=== PATIENT | female | born 1995 | race Caucasian/White ===

== ENCOUNTER 2022-09-03 06:07 | Inpatient (IN) | payer OTHER ==
[2022-09-03] MEDS ORDERED: TERBUTALINE 1 MG/ML VIAL SQ PRN (06:36)
[2022-09-03] MEDS ORDERED: LIDOCAINE 0.5% (PF) 5 MG/ML (50 ML SDV) SQ PRN (06:36)
[2022-09-03] MEDS ORDERED: OXYTOCIN 30 UNITS/500 ML NS 30 UNIT in SALINE 1 500ML.BAG IV SCH (06:45)
[2022-09-03 07:07] LABS: Basophils % (A) 0 %; Eosinophils % (A) 0 %; HCT 33.3 % (34.0-46.0); HGB 11.5 gm/dL (11.4-16.0); Lymphocytes # (A) 1.7 k/uL (1.0-4.8); Lymphocytes % (A) 22 %; MCH 30.8 pg (25.0-35.0); MCHC 34.5 g/dL (31.0-37.0); MCV 89.1 fL (80.0-100.0); Mean Platelet Volume 8.3; Monocytes # (A) 0.3 k/uL (0-1.0); Monocytes % (A) 4 %; Neutrophils # (A) 5.7 k/uL (1.3-7.7); Neutrophils % (A) 72 %; Platelet Count 204 k/uL (150-450); RBC 3.73 m/uL (3.80-5.40); RDW 13.9 % (11.5-15.5); WBC 7.8 k/uL (3.8-10.6)
--- NOTE | 2022-09-03 07:08 | P.HPOB ---
History of Present Illness H&P Date: 09/03/22 Chief Complaint: Here for induction of labor, contractions every 7 minutes. Previous C-sect This is a 27-year-old female 2 para 1001 EDC 09/03/2022 at 40 weeks gestation. Patient has a previous history of low transverse and is hoping for . Cervix is favorable, she presents today for induction, but has had uterine contractions every 7 minutes apart through the night. Fetus is been active throughout the . She denies fluid leakage or vaginal bleeding. Past surgical history section 2019 for failure to descend in the second stage. Dental surgery age 21. Past medical history is significant for seizure disorder, no seizure in years, and on no medications. Hypothyroidism, history of ovarian cysts. Current medications vitamins daily, Levothyroxine 50 MCG's daily ALLERGIES sulfa, reaction unknown. Family history significant for diabetes, mesothelioma, seizure disorder, thyroid issues. Social history patient is , she denies alcohol or drug use, former marijuana smoker. Obstetric history blood type is A+, rubella status immune. VDRL testing, hepatitis B surface antigen, group B strep cultures, gonorrhea and chlamydia cultures, urine culture all negative. One-hour Glucola 101. On exam patient is 5 foot 3 inches, 171 pounds, vital signs are stable and she is afebrile. The general physical exam is within normal limits. Extremities reveal no edema. Cervix is 3-4 cm dilated, 60-70% effaced, -2 station, vertex presentation, soft, anterior. Artificial amniorrhexis reveals clear fluid. heart rate is consistent with reactive NST. Impression: 40 week intrauterine , favorable cervix, early labor, previous planning . Plan: Analgesic options reviewed. Oxytocin per hospital protocol. Close maternal and surveillance. Anticipate normal spontaneous vaginal delivery. Review of Systems Constitutional: Reports as per HPI Past Medical History Past Medical History: Seizure Disorder, Thyroid Disorder Medications and Allergies Home Medications Medication Instructions Recorded Confirmed Type Aspirin 81 mg PO DAILY 09/03/22 09/03/22 History Levothyroxine Sodium [Synthroid] 50 mcg PO DAILY 09/03/22 09/03/22 History Vit No.179/Iron/Folic 1 each PO DAILY 09/03/22 09/03/22 History [ Tablet] Allergies Allergy/AdvReac Type Severity Reaction Status Date / Time Sulfa (Sulfonamide Allergy Rash/Hives Verified 09/03/22 06:33 Antibiotics) Exam Intake and Output 09/02/22 09/03/22 09/03/22 22:59 06:59 14:59 Other: Weight 77.836 kg See dictation under HPI please Assessment and Plan Assessment: 40 week intrauterine , here for induction of labor, in early spontaneous labor. History of previous , planning . Plan: Analgesic options reviewed. Oxytocin per hospital protocol. Continue close maternal and surveillance. Anticipate vaginal after . Time with Patient: Less than 30
[2022-09-03] MEDS: LACTATED RINGERS 1,000 ML IV SCH ×2 (07:10→14:45)
[2022-09-03] MEDS ORDERED: diphenhydrAMINE 50 MG/ML 1 ML VIAL IVP PRN ×2 (11:17)
[2022-09-03] MEDS ORDERED: diphenhydrAMINE 25 MG CAP PO PRN (11:17)
[2022-09-03] MEDS ORDERED: SIMETHICONE 80 MG CHEWABLE PO PRN (11:17)
[2022-09-03] MEDS ORDERED: LANOLIN CREAM 5 GM TUBE TOPICAL PRN (11:17)
[2022-09-03] MEDS ORDERED: diphenhydrAMINE ELIXIR 25 MG/10 ML CUP PO PRN (11:17)
[2022-09-03] MEDS ORDERED: IBUPROFEN ORAL SUSP 100 MG/5 ML CUP PO PRN (11:17)
[2022-09-03] MEDS ORDERED: diphenhydrAMINE 50 MG CAP PO PRN (11:17)
[2022-09-03] MEDS ORDERED: HYDROCORTISONE 2.5% RECTAL CREAM 30 GM TUBE RECTAL PRN (11:17)
[2022-09-03] MEDS ORDERED: BENZOCAINE/MENTHOL SPRAY 1 GM/SPRAY AEROSOL TOPICAL PRN (11:17)
[2022-09-03] MEDS ORDERED: ZOLPIDEM 5 MG TAB PO PRN (11:17)
--- NOTE | 2022-09-03 11:17 | P.PROBDLV ---
Vaginal Delivery Note - . Vaginal Delivery Note: This is a 27-year-old female 2 para 1001 EDC 09/03/2022 at 40 weeks gestation who presented with a favorable cervix for attempted . is remarkable for rubella status immune, blood type A+, group B strep cultures negative. Please see my dictated history and physical for details. Artificial amniorrhexis revealed clear fluid. Patient was offered but declined any pain medication. She progressed well through the first stage of labor, heart tones were reassuring throughout. She became completely dilated at 1050 hrs. Perineal body was prepped and draped in usual sterile fashion. With excellent maternal expulsive efforts the head crowned in the occiput anterior position. There was a nuchal cord 1 that was reduced. The right or anterior shoulder was delivered from underneath the pubic symphysis at which time the oropharynx, nasopharynx, and external nares were bulb suctioned on the perineal body. Patient was officially delivered of a liveborn male at 1101 hrs. Umbilical cord was doubly clamped and ligated, he was handed to waiting nurses for evaluation where scores of 9 and 9 at one and 5 minutes respectively were given. The placenta delivered spontaneously, it was inspected and noted to be intact with trivascular cord. Uterus is massaged. Careful inspection of the cervix, vagina, perineum, periurethral, and perirectal areas revealed no significant lacerations or defects. No suturing was deemed necessary. Total estimated blood loss 200 mL's. All sponge needle and enhancement counts are correct. Patient is declining circumcision for her son at this time, hoping to do it at the 8th day of life.Patient is allowed to begin the bonding experience in the LDR.
[2022-09-03] MEDS: IBUPROFEN 600 MG TAB PO SCH ×2 (12:50→21:19)
[2022-09-03] MEDS: SENNOSIDES-DOCUSATE SODIUM 1 EACH TAB PO SCH ×2 (20:37→21:21)
[2022-09-04] MEDS: LEVOTHYROXINE 50 MCG TAB PO SCH (06:31)
[2022-09-04] MEDS: IBUPROFEN 600 MG TAB PO SCH ×5 (06:33→18:39)
[2022-09-04] MEDS: SENNOSIDES-DOCUSATE SODIUM 1 EACH TAB PO SCH ×2 (08:18→20:55)
--- NOTE | 2022-09-04 11:59 | P.PN ---
Subjective Progress Note Date: 09/04/22 Principal diagnosis: Doing well first day Slept well. Minimal pain. Minimal lochia rubra. Breast-feeding. in the nursery with elevated bilirubin. Objective - Vital Signs Vital signs: Vital Signs Temp 98.1 F 09/04/22 08:00 Pulse 83 09/04/22 08:00 Resp 16 09/04/22 08:00 BP 103/66 09/04/22 08:00 Pulse Ox 97 09/04/22 08:00 FiO2 Intake & Output 09/03/22 09/04/22 09/04/22 18:59 06:59 18:59 Intake Total 174.667 Output Total 720 Balance -545.333 Weight 77.836 kg Intake: Intake, IV Titration 174.667 Amount Oxytocin 30 Units/500 ml 174.667 Ns 30 unit In Saline 1 500ml.bag @ Per Protocol IV .Q0M TADEO Rx#:[id number] Output: Estimated Blood Loss 400 Output, Quantitative 320 Blood Loss Other: # Voids 1 1 1 - Constitutional General appearance: Present: average body habitus, cooperative - EENT Eyes: Present: PERRLA ENT: Present: hearing grossly normal - Neck Neck: Present: normal ROM - Respiratory Respiratory: bilateral: CTA - Cardiovascular Rhythm: regular - Gastrointestinal General gastrointestinal: Present: normal bowel sounds - Genitourinary Genitourinary Comment(s): Uterus firm, midline, symmetric, nontender, 18 week size. Minimal lochia rubra. - Neurologic Neurologic: Present: CNII-XII intact - Musculoskeletal Musculoskeletal: Present: strength equal bilaterally - Psychiatric Psychiatric: Present: A&O x's 3, appropriate affect, intact judgment & insight - Labs CBC & Chem 7: 09/03/22 06:25 Assessment and Plan Assessment: Doing well first day. Plan: Likely discharge home tomorrow upon discharge. Requesting circumcision in the office on 09/11/2022, we will attempt to schedule. Jdrf-kff-blrxqsv medication as needed for pain. No intercourse tampons or douching. Bogz-xct-infyrnu Advil or Motrin or Aleve as needed for pain. Time with Patient: Less than 30
[2022-09-05] MEDS: IBUPROFEN 600 MG TAB PO SCH (00:20)
[2022-09-05 00:37] VITALS: RESP 16
[2022-09-05] MEDS: LEVOTHYROXINE 50 MCG TAB PO SCH (05:46)
[2022-09-05] MEDS: SENNOSIDES-DOCUSATE SODIUM 1 EACH TAB PO SCH (08:13)
--- NOTE | 2022-09-05 08:53 | P.DS ---
Providers Date of admission: 09/03/22 06:07 Expected date of discharge: 09/05/22 Attending physician: Tiera Carrasco Primary care physician: Stated None - Discharge Diagnosis(es) (1) Normal spontaneous vaginal delivery Current Visit: Yes Status: Acute (2) Vaginal after () Current Visit: Yes Status: Acute Hospital Course: the patient is a 27-year-old 2 para 1001 admitted at 40 weeks of gestation by good dating parameters. She is admitted for trial of labor having had a previous low transverse section. She has a favorable cervix. On labor and delivery, all signs reassuring with category 1 heart rate tracing. She had Pitocin augmentation started and underwent artificial rupture of membranes for clear fluid.she progressed the through the latent and active phase of labor without difficulty and fairly quickly. She then pushed to a normal spontaneous vaginal delivery of a viable 7 lbs. 15 oz. baby boy with Apgars of 9 at 1 minute and 9 at 5 minutes. Her course was unremarkable with vital signs remaining stable and her temperature was afebrile throughout. She was deemed stable for discharge on day #2 was discharged home to follow-up in the office in 6 weeks' time routinely. Discharge instructions included calling for any significantly increased bleeding or foul-smelling lochia, significantly increased fever abdominal pain, perineal complaints, breast complaints, or anything also concerned her. She was a dditionally instructed to have nothing in the vagina for at least 6 weeks time to include intercourse. She understood her instructions and agrees follow up as noted above. Discharge medications included continued vitamins as she has opted to breast-feed as well as qewi-qyc-agqnksk analgesic pain medications. Maternal blood type is A+ and rubella status is immune. Patient Condition at Discharge: Stable Plan - Discharge Summary New Discharge Prescriptions: No Action Levothyroxine Sodium [Synthroid] 50 mcg PO DAILY Vit No.179/Iron/Folic [ Tablet] 1 each PO DAILY Aspirin 81 mg PO DAILY Discharge Medication List Aspirin 81 mg PO DAILY 09/03/22 [History] Levothyroxine Sodium [Synthroid] 50 mcg PO DAILY 09/03/22 [History] Vit No.179/Iron/Folic [ Tablet] 1 each PO DAILY 09/03/22 [History] Follow up Appointment(s)/Referral(s): Tiera Carrasco MD [STAFF PHYSICIAN] - 6 Weeks Discharge Disposition: HOME SELF-CARE
[2022-09-05 12:22] VITALS: BP 99/65; PULSE 87; TEMP 98.4
== END 2022-09-05 16:14 | disposition home or self-care (01) | DRG 807 ==
LOC: 4FBP 06:07
PROVIDERS: ADMIT Obstetrics & Gynecology; ATTEND Obstetrics & Gynecology
PROC: 10E0XZZ Delivery of Products of Conception, External Approach (ICD-10-PCS; principal; 2022-09-03)
DX: O34.211 Maternal care for low transverse scar from previous cesarean delivery (principal); Z37.0 Single live birth; E03.9 Hypothyroidism, unspecified; O99.284 Endocrine, nutritional and metabolic diseases complicating childbirth; N85.8 Other specified noninflammatory disorders of uterus; O69.81X0 Labor and delivery complicated by cord around neck, without compression, not applicable or unspecified; Z3A.40 40 weeks gestation of pregnancy; Z28.310 Unvaccinated for COVID-19; Z79.890 Hormone replacement therapy; Z79.82 Long term (current) use of aspirin; Z79.899 Other long term (current) drug therapy; Z88.2 Allergy status to sulfonamides
CPT/HCPCS: 85025; 86803; 86850; 86900; 86901

== ENCOUNTER → 2024-06-17 | Outpatient (CLI) | payer OTHER ==
[2024-06-17 18:17] LABS: T4, Free (Free Thyroxine) 1.01 ng/dL (0.80-1.80)
== END | disposition home or self-care (01) ==
LOC: LABWHC1 10:36
PROVIDERS: ATTEND Internal Medicine Endocrinology, Diabetes & Metabolism
DX: E03.8 Other specified hypothyroidism (principal)
CPT/HCPCS: 36415; 84439; 84443

== ENCOUNTER → 2024-07-27 | Outpatient (CLI) | payer OTHER | END | disposition home or self-care (01) | LOC: LABWHC1 11:47 | PROVIDERS: ATTEND Internal Medicine Endocrinology, Diabetes & Metabolism | DX: E03.8 Other specified hypothyroidism (principal) | CPT/HCPCS: 36415; 84443 ==

== ENCOUNTER 2024-11-08 06:06 | Inpatient (IN) | payer OTHER ==
[2024-11-08] MEDS ORDERED: TERBUTALINE 1 MG/ML VIAL SQ PRN (06:49)
[2024-11-08] MEDS ORDERED: METHYLERGONOVINE 0.2 MG/ML 1 ML AMP IM PRN (06:49)
[2024-11-08] MEDS ORDERED: CARBOPROST TROMETHAMINE 250 MCG/ML 1 ML AMP IM PRN (06:49)
[2024-11-08] MEDS ORDERED: TRANEXAMIC 1,000 MG/100ML-NACL 1,000 MG in EMPTY BAG 1 BAG IV PRN (06:49)
[2024-11-08] MEDS ORDERED: miSOPROStoL 200 MCG TAB RECTAL PRN (06:49)
[2024-11-08] MEDS ORDERED: LIDOCAINE 0.5% (PF) 5 MG/ML (50 ML SDV) SQ PRN (06:49)
[2024-11-08] MEDS ORDERED: OXYTOCIN 10 UNIT/ML 1 ML VIAL IM PRN (06:49)
[2024-11-08] MEDS ORDERED: miSOPROStoL 200 MCG TAB PO PRN (06:49)
[2024-11-08 07:21] LABS: Basophils % (A) 0 %; Eosinophils # (A) 0.1 k/uL (0-0.7); Eosinophils % (A) 1 %; HCT 34.9 % (34.0-46.0); HGB 11.6 gm/dL (11.4-16.0); Lymphocytes # (A) 1.9 k/uL (1.0-4.8); Lymphocytes % (A) 29 %; MCH 29.9 pg (25.0-35.0); MCHC 33.2 g/dL (31.0-37.0); MCV 90.1 fL (80.0-100.0); Mean Platelet Volume 8.4; Monocytes # (A) 0.2 k/uL (0-1.0); Monocytes % (A) 4 %; Neutrophils # (A) 4.2 k/uL (1.3-7.7); Neutrophils % (A) 64 %; Platelet Count 178 k/uL (150-450); RBC 3.87 m/uL (3.80-5.40); RDW 14.3 % (11.5-15.5); WBC 6.5 k/uL (3.8-10.6)
[2024-11-08] MEDS: LACTATED RINGERS 1,000 ML IV SCH (07:27)
[2024-11-08] MEDS: OXYTOCIN 30 UNITS/500 ML NS 30 UNIT in SALINE 1 500ML.BAG IV SCH (07:27)
[2024-11-08] MEDS ORDERED: NALBUPHINE 10 MG/ML (10 ML MDV) IV PRN (08:35)
--- NOTE | 2024-11-08 08:35 | P.HPOB ---
History of Present Illness H&P Date: 11/08/24 Chief Complaint: IUP at 39-2/7 weeks This is a 29-year-old 3 para 2-0-0-2 at 39-2/7 weeks that presents to labor and delivery for scheduled induction of labor. Patient has a prior history of a section with her first delivery, failed home delivery. Patient had a successful with her second delivery. Patient has been receiving routine care which has been essentially uncomplicated. Patient notes good movement today she notes occasional contractions denies loss of fluid or vaginal bleeding. On blood work this patient has a blood type of a positive, rubella status immune, hepatitis B surface antigen negative, RPR is nonreactive, group beta strep culture is negative. Review of Systems Constitutional: Denies chills, Denies fatigue, Denies fever Ears, nose, mouth and throat: Denies headache Cardiovascular: Reports leg edema Respiratory: Denies dyspnea Gastrointestinal: Denies nausea, Denies vomiting Genitourinary: Reports Past Medical History Past Medical History: Seizure Disorder, Thyroid Disorder Additional Past Medical History / Comment(s): Had seizure in 09/2020, hashimotos History of Any Multi-Drug Resistant Organisms: None Reported Past Surgical History: Section Additional Past Surgical History / Comment(s): Jasper teeth removal Past Anesthesia/Blood Transfusion Reactions: No Reported Reaction Past Psychological History: No Psychological Hx Reported Smoking Status: Never smoker Past Alcohol Use History: None Reported Past Drug Use History: None Reported - Past Family History Mother Family Medical History: No Reported History Medications and Allergies Home Medications Medication Instructions Recorded Confirmed Type Aspirin 81 mg PO DAILY 09/03/22 11/08/24 History Levothyroxine Sodium [Synthroid] 125 mcg PO DAILY 09/03/22 11/08/24 History Vit No.179/Iron/Folic 1 each PO DAILY 09/03/22 11/08/24 History [ Tablet] Allergies Allergy/AdvReac Type Severity Reaction Status Date / Time Sulfa (Sulfonamide Allergy Rash/Hives Verified 11/08/24 06:35 Antibiotics) Exam Osteopathic Statement: *. No significant issues noted on an osteopathic st ructural exam other than those noted in the History and Physical/Consult. Vital Signs Temp Pulse Resp BP 11/08/24 06:33 97.3 F L 107 H 15 118/77 Intake and Output 11/07/24 11/08/24 11/08/24 22:59 06:59 14:59 Other: Weight 88.451 kg Targeted physical exam is performed this date in general is a well-nourished well-developed female in no acute distress, breathing is nonlabored, heart has a regular rate and rhythm, abdomen is gravid, on cervical exam she is 4/50/-3 station, amniotomy is performed and copious clear fluid is obtained. Vertex presentation is appreciated on exam and confirmed with ultrasound. heart tones are noted to be category 1 and she is ingris irregularly. Results Result Diagrams: 11/08/24 06:55 Assessment and Plan (1) Term Current Visit: Yes Status: Acute Code(s): Z34.90 - ENCNTR FOR SUPRVSN OF NORMAL , UNSP, UNSP TRIMESTER SNOMED Code(s): 30049160 (2) History of section Current Visit: Yes Status: Acute Code(s): Z98.891 - HISTORY OF UTERINE SCAR FROM PREVIOUS SURGERY SNOMED Code(s): 867994230 (3) Desires (vaginal after ) trial Current Visit: Yes Status: Acute Code(s): O34.219 - MATERNAL CARE FOR UNSP TYPE SCAR FROM PREVIOUS DEL SNOMED Code(s): 205939638 (4) History of Current Visit: Yes Status: Acute Code(s): Z98.891 - HISTORY OF UTERINE SCAR FROM PREVIOUS SURGERY SNOMED Code(s): 707771726 Plan: 29-year-old G3, P2 at 39-2/7 weeks that presents to labor and delivery for scheduled induction of labor. Patient is admitted and Pitocin induction of labor has begun. Patient underwent amniotomy clear fluid was obtained. Options for analgesia are discussed and patient states understanding. Anticipate spontaneous vaginal delivery.
[2024-11-08] MEDS: LEVOTHYROXINE 125 MCG TAB PO SCH (12:55)
[2024-11-08] MEDS: PRENATAL VIT-IRON-FOLIC ACID 1 EACH TABLET PO SCH (12:55)
[2024-11-08] MEDS ORDERED: diphenhydrAMINE 50 MG/ML 1 ML VIAL IVP PRN ×2 (13:51)
[2024-11-08] MEDS ORDERED: BENZOCAINE/MENTHOL SPRAY 1 GM/SPRAY AEROSOL TOPICAL PRN (13:51)
[2024-11-08] MEDS ORDERED: SIMETHICONE 80 MG CHEWABLE PO PRN (13:51)
[2024-11-08] MEDS ORDERED: HYDROCORTISONE 2.5% RECTAL CREAM 30 GM TUBE RECTAL PRN (13:51)
[2024-11-08] MEDS ORDERED: diphenhydrAMINE 50 MG CAP PO PRN (13:51)
[2024-11-08] MEDS ORDERED: diphenhydrAMINE 25 MG CAP PO PRN (13:51)
[2024-11-08] MEDS ORDERED: LANOLIN CREAM 1 GM TUBE TOPICAL PRN (13:51)
[2024-11-08] MEDS ORDERED: ZOLPIDEM 5 MG TAB PO PRN (13:51)
--- NOTE | 2024-11-08 13:54 | P.PROBDLV ---
Vaginal Delivery Note - . Vaginal Delivery Note: Date of service 11/08/2024 Findings: male delivered at 1342, weight pending as is on maternal abdomen 29-year-old 3 para 2 at 39 2/7 weeks that presents to labor and delivery for induction of labor. Patient has a prior history of section with her first , failed home delivery. Successful vaginal after with her second. Patient was admitted to labor and delivery and Pitocin induction of labor is begun. Patient underwent amniotomy where copious clear fluid is obtained. Patient made good progress through labor becoming uncomfortable. Patient progressed to complete dilation. Once completely dilated patient began pushing and had a normal spontaneous vaginal delivery of a viable male infant at 1342, loose nuchal was noted at the time of delivery and reduced on the perineum. Spontaneous cry was noted at . After 2-minute delay the umbilical cord was doubly clamped and cut. Placenta was delivered spontaneously intact with a three-vessel cord being noted. On inspection of the patient's vaginal vault no lacerations were appreciated. Uterus was noted be firm below the umbilicus. Estimated blood loss 100 cc. All counts were correct x 2. Patient and infant tolerated delivery well and are resting comfortably.
[2024-11-08] MEDS: IBUPROFEN 800 MG TAB PO SCH (14:32)
[2024-11-08] MEDS: ACETAMINOPHEN TAB 500 MG TAB PO SCH (18:16)
[2024-11-08] MEDS: SENNOSIDES-DOCUSATE SODIUM 1 EACH TAB PO SCH (21:12)
--- NOTE | 2024-11-09 08:32 | P.PNOBGVD ---
Subjective - Subjective Principal diagnosis: PPD 1 Interval history: Patient is doing well this morning. She is ambulating and voiding without difficulty. Pain is well-controlled. She denies concerns. infant is in the nursery on 1 L of oxygen secondary to tachypnea. Patient reports: Reports appetite normal, Reports voiding normally, Reports pain well controlled, Reports ambulating normally Dahlgren: doing well (in scn) Objective - Latest Vital Signs Latest vital signs: Vital Signs Temp Pulse Resp BP Pulse Ox 11/09/24 08:00 96.2 F L 81 18 105/71 11/09/24 00:00 98.1 F 87 15 110/69 96 11/08/24 20:30 98.1 F 87 17 98/56 97 11/08/24 15:57 97.5 F L 76 18 113/75 11/08/24 15:35 98.0 F 70 18 110/70 11/08/24 15:20 97.6 F 75 18 109/66 11/08/24 15:05 65 109/66 11/08/24 14:50 80 120/67 11/08/24 14:35 96.9 F L 80 18 114/64 11/08/24 14:20 97.1 F L 80 18 114/61 11/08/24 14:05 79 115/69 11/08/24 13:50 96.3 F L 91 18 118/65 Intake and Output 11/08/24 11/09/24 11/09/24 22:59 06:59 14:59 Intake Total 480 Output Total 150 Balance -150 480 Intake: Oral 480 Output: Output, Quantitative 150 Blood Loss Other: # Voids 1 1 1 - Exam Extremities: Present: normal, edema Abdomen: Present: normal appearance, soft Uterus: Present: normal, firm Assessment and Plan (1) Term Current Visit: Yes Status: Acute Code(s): Z34.90 - ENCNTR FOR SUPRVSN OF NORMAL , UNSP, UNSP TRIMESTER SNOMED Code(s): 03429988 (2) History of section Current Visit: Yes Status: Acute Code(s): Z98.891 - HISTORY OF UTERINE SCAR FROM PREVIOUS SURGERY SNOMED Code(s): 848609327 (3) Desires (vaginal after ) trial Current Visit: Yes Status: Acute Code(s): O34.219 - MATERNAL CARE FOR UNSP TYPE SCAR FROM PREVIOUS DEL SNOMED Code(s): 710053855 (4) History of Current Visit: Yes Status: Acute Code(s): Z98.891 - HISTORY OF UTERINE SCAR FROM PREVIOUS SURGERY SNOMED Code(s): 573346980 (5) Vaginal after () Current Visit: No Status: Acute Code(s): O34.219 - MATERNAL CARE FOR UNSP TYPE SCAR FROM PREVIOUS DEL SNOMED Code(s): 767297195 Plan: Patient is doing well . Plan to continue routine care. Anticipate discharge home tomorrow.
[2024-11-10 02:25] VITALS: RESP 16
[2024-11-10 08:12] VITALS: BP 103/66; PULSE 74; TEMP 97.8
--- NOTE | 2024-11-10 08:30 | P.DS ---
Providers Date of admission: 11/08/24 06:06 Expected date of discharge: 11/10/24 Attending physician: Sheridan Tran Primary care physician: Stated None - Discharge Diagnosis(es) (1) Term Current Visit: Yes Status: Acute (2) History of section Current Visit: Yes Status: Acute (3) Desires (vaginal after ) trial Current Visit: Yes Status: Acute (4) History of Current Visit: Yes Status: Acute (5) Vaginal after () Current Visit: No Status: Acute Hospital Course: This is a 29-year-old 3 now para 3 that presented to labor and delivery at 39-2/7 weeks for induction of labor. For full details in this patient please see the dictated history and physical patient was admitted to labor and delivery and dose induction of labor was begun, amniotomy was performed and clear fluid was obtained. Patient progressed through labor and progressed to complete dilation. Once completely dilated patient began pushing and had a normal spontaneous vaginal delivery of a viable male on 11/08 at 1342, weight of 7 pounds 7 ounces. No vaginal lacerations were appreciated after delivery. Patient is doing well . She is ambulating and voiding without difficulty. remains in the nursery on O2 for tachypnea. Please see pediatric notes for recommendations. Lochia is minimal to moderate. She is breast-feeding and pumping as is on O2 Patient Condition at Discharge: Good Plan - Discharge Summary New Discharge Prescriptions: No Action Levothyroxine Sodium [Synthroid] 125 mcg PO DAILY Vit No.179/Iron/Folic [ Tablet] 1 each PO DAILY Aspirin 81 mg PO DAILY Discharge Medication List Aspirin 81 mg PO DAILY 09/03/22 [History] Levothyroxine Sodium [Synthroid] 125 mcg PO DAILY 09/03/22 [History] Vit No.179/Iron/Folic [ Tablet] 1 each PO DAILY 09/03/22 [History] Follow up Appointment(s)/Referral(s): Sheridan Tran DO [Doctor of Osteopathic Medicine] - 12/21/24 11:30 am Patient Instructions/Handouts: Vaginal Delivery (GEN), Vaginal Delivery (DC) Activity/Diet/Wound Care/Special Instructions: Lfpk-mki-mqxkynr ibuprofen 600 mg or 3 tablets to 6 hours as needed for pain. No tub baths or intercourse until 6 weeks . Routine check at 6 weeks. Should she have any concerns prior to this appointment she is urged to call the office. Discharge Disposition: HOME SELF-CARE
== END 2024-11-10 16:33 | disposition home or self-care (01) | DRG 807 ==
LOC: 4FBP 06:06
PROVIDERS: ADMIT Obstetrics & Gynecology Obstetrics; ATTEND Obstetrics & Gynecology Obstetrics
PROC: 10E0XZZ Delivery of Products of Conception, External Approach (ICD-10-PCS; principal; 2024-11-08)
PROC: 3E033VJ Introduction of Other Hormone into Peripheral Vein, Percutaneous Approach (ICD-10-PCS; principal; 2024-11-08)
PROC: 10907ZC Drainage of Amniotic Fluid, Therapeutic from Products of Conception, Via Natural or Artificial Opening (ICD-10-PCS; principal; 2024-11-08)
DX: O34.219 Maternal care for unspecified type scar from previous cesarean delivery (principal); Z37.0 Single live birth; E06.3 Autoimmune thyroiditis; O99.284 Endocrine, nutritional and metabolic diseases complicating childbirth; Z3A.39 39 weeks gestation of pregnancy; Z79.82 Long term (current) use of aspirin; Z79.890 Hormone replacement therapy
CPT/HCPCS: 85025; 86850; 86900; 86901

== ENCOUNTER → 2025-01-17 | Outpatient (CLI) | payer OTHER ==
[2025-01-17 15:35] LABS: T4, Free (Free Thyroxine) 1.55 ng/dL (0.80-1.80)
== END | disposition home or self-care (01) ==
LOC: LABWHC1 10:03
PROVIDERS: ATTEND Internal Medicine Endocrinology, Diabetes & Metabolism
DX: E03.8 Other specified hypothyroidism (principal)
CPT/HCPCS: 36415; 84439; 84443